=== PATIENT | female | born 1980 | race Caucasian/White ===

== ENCOUNTER → 2017-04-06 | Outpatient (CLI) | payer OTHER ==
--- NOTE | 2017-04-06 10:21 | USB ---
Reason for exam: follow-up at short interval from prior study. History: Family history of breast cancer in maternal aunt at age 32. Physical Findings: Nurse Summary: 1cm movable, round, cystic cluster tender with palpation. Patient complains of bilateral breast pain x 1 month (nurse mm) US Breast BILAT Right breast ultrasound includes all four quadrants, the retroareolar region and axilla. Finding demonstrates a 7 x 4 x 7mm oval, mixed lesion at 7 o'clock, a 7 x 4 x 8mm lobular, mixed lesion at 8 o'clock, a 10 x 4 x 6mm lobular, cystic lesion at 9 o'clock, a 6 x 6 x 7mm lobular, mixed lesion at 10 o'clock and a 16 x 6 x 9mm lobular, mixed lesion at 11 o'clock. Left breast ultrasound includes all four quadrants, the retroareolar region and axilla. Finding demonstrates a 11 x 3 x 6mm oval, lobular, mixed lesion at 12 o'clock, a 6 x 3 x 4mm lobular, mixed lesion at 1 o'clock, a 7 x 3 x 7mm oval, mixed lesion at 3 o'clock, a 9 x 3 x 7mm oval, mixed lesion at 3 o'clock, a 7 x 5 x 6mm mixed lesion at 9 o'clock and a 11 x 4 x 7mm mixed lesion at 11 o'clock. These results were verbally communicated with the patient and result sheet given to the patient on 04/06/17. ASSESSMENT: Incomplete: need additional imaging evaluation, BI-RAD 0 RECOMMENDATION: Breast MRI of both breasts.
== END | disposition home or self-care (01) ==
LOC: RADUSWWP 08:55
PROVIDERS: ATTEND Family Medicine
DX: R92.8 Other abnormal and inconclusive findings on diagnostic imaging of breast (principal)

== ENCOUNTER → 2017-05-11 | Outpatient (CLI) | payer OTHER ==
--- NOTE | 2017-05-12 12:47 | BMR ---
EXAMINATION TYPE: MR breast BILAT wo/w con DATE OF EXAM: 05/11/2017 COMPARISON: Ultrasound breast 04/06/2017 HISTORY: Abnormal US showing lesions in both breasts TECHNIQUE: A series of fat and water weighted images in the long and short axis views of both breasts are obtained in conjunction with dynamic contrast MRI with subtraction technique. The patient was i njected with 13 mL intravenous MultiHance gadolinium contrast. Three-dimensional and additional pos tprocessing imaging is created on independent workstation and reviewed during official interpretation of this study. FINDINGS: The bilateral breasts show multiple hyperintense foci on T2 weighted sequences correspondin g to breast cysts. There is normal fibroglandular tissue present bilaterally. No evident axillary iván nopathy bilaterally. Right breast: No suspicious abnormal enhancement is evident. No skin thickening, nipple retraction. The left breast shows a focus at the 3:00 position corresponding likely to be area of palpable abnorm ality and mixed echogenicity with measurement of approximately 7 mm as noted on ultrasound. Type III curve is associated and dynamic postcontrast images. Lesion is approximately 5 cm from the nipple. IMPRESSION: Left breast suspicious abnormality, BI-RADS 4, recommend ultrasound-guided breast core biopsy 3:00 po sition of the mixed solid cystic lesion. Right breast: Benign, BI-RADS 2
== END | disposition home or self-care (01) ==
LOC: RADMRIMAIN 16:52
PROVIDERS: ATTEND Physician Assistant Medical
DX: R92.8 Other abnormal and inconclusive findings on diagnostic imaging of breast (principal); N64.9 Disorder of breast, unspecified; Z80.3 Family history of malignant neoplasm of breast
CPT/HCPCS: 77059; 0159T; A9577

== ENCOUNTER → 2017-05-25 | Day surgery (SDC) | payer OTHER ==
[2017-05-25 08:56] VITALS: RESP 16; BMI 22.5
--- NOTE | 2017-05-25 10:24 | USB ---
EXAMINATION TYPE: US biopsy breast VAD LT DATE OF EXAM: 05/25/2017 CLINICAL HISTORY: R92.8 ABN ultrasound and MRI. TECHNIQUE: Ultrasound guided fine-needle aspiration and/or core biopsy of left breast. COMPARISON: Bilateral breast MRI May 11, 2017. Bilateral breast ultrasound 12/07/2016 FINDINGS: The procedure of ultrasound guided fine-needle aspiration and/or core biopsy was explained to the patient. Benefits, alternatives, and risks were discussed. An informed consent was then obta ined. The patient was placed in supine positioning for imaging and for the procedure. Preprocedure imaging redemonstrates elongated oval hypoechoic anechoic slightly ill-defined lesion 3:00 position in the l eft breast zone B cc there is believed to correspond to MRI abnormality roughly 5 cm from the nipple measuring roughly 9 mm on long axis. The overlying skin was prepped and draped in usual sterile fashi on. Lidocaine was used as anesthetic into the skin. Lidocaine with epinephrine was used as anesthetic into the deeper tissue up to area of concern in the left breast. A marta was made with surgical scal pel. Attempts with ultrasound-guided fine-needle aspiration utilizing 18-gauge spinal needle were un successful in obtaining fluid. At this point in attenuation with biopsy was performed. Under ultrasound guidance, a 12-gauge vacuum assisted biopsy gun device was used to obtain 3 [address]es. Following this, a biopsy clip was not left in lesion. Patient refused to have biopsy clip lef t at area of concern despite explanation by myself of why having clip is preferred. Lesion was not re adily visualized after biopsy. The patient tolerated the procedure well without any immediate complication. The patient was kept in the radiology department for short stay after the procedure and then discharged home in stable condi tion. IMPRESSION: Successful, uncomplicated ultrasound guided core biopsy of area of concern in the left br east, full pathology results to follow. Low index of suspicion noted at time of procedure.
[2017-05-25 10:41] VITALS: BP 110/74; PULSE 74; TEMP 97.9
== END ==
LOC: RADUSWWP 08:32
PROVIDERS: ATTEND Surgery
DX: N60.32 Fibrosclerosis of left breast (principal); N60.82 Other benign mammary dysplasias of left breast; R92.8 Other abnormal and inconclusive findings on diagnostic imaging of breast; N60.22 Fibroadenosis of left breast; N64.89 Other specified disorders of breast; Z91.09 Other allergy status, other than to drugs and biological substances
CPT/HCPCS: 88305; 19083; J2001

== ENCOUNTER → 2021-05-05 | Outpatient (CLI) | payer OTHER ==
--- NOTE | 2021-05-05 14:34 | USB ---
EXAMINATION TYPE: US breast complete RT DATE OF EXAM: 05/05/2021 COMPARISON: 04/06/2017 CLINICAL HISTORY: N63 Unspecified lump in breast. Findings: The right breast was scanned with ultrasound in all 4 quadrants and the retroareolar region and axill a. Multiple simple and septated cysts are seen. In the right breast at 8:00 in the area of patient's clinical abnormality, there is a 1.4 x 1.2 cm hy poechoic ovoid lesion which most likely represents a complicated cyst, however, abscess is also a pos sibility. IMPRESSION: In the right breast at 8:00 in the area of patient's clinical abnormality, there is a 1.4 x 1.2 cm hy poechoic ovoid lesion which most likely represents a complicated cyst, however, abscess is also a pos sibility. Patient is due for her bilateral mammogram which should be performed as a diagnostic study. Follow-up right breast ultrasound is recommended in 6-8 weeks. BI-RADS 0, incomplete.
== END | disposition home or self-care (01) ==
LOC: RADUSWWP 12:59
PROVIDERS: ATTEND Family Medicine
DX: N60.01 Solitary cyst of right breast (principal)

== ENCOUNTER → 2021-05-07 | Outpatient (CLI) | payer OTHER ==
[2021-05-07 13:08] VITALS: BP 109/66; PULSE 42; RESP 12
--- NOTE | 2021-05-07 13:30 | P.GSHP ---
History of Present Illness H&P Date: 05/07/21 Chief Complaint: right breast lump Jose Guadalupe is a 41 year old white female seen in consultation Dr. Mendez regarding a lump in her right breast. She noted this last week. It had increased to golf ball size and was given a prescription for antibiotics. She was given cephalaxin, she is taking this TID. The growth rate decreased but the lump remained present. It has not drained. It was painful when it started, this has decreased. She did not have any fevers. She did not have any trauma, but she did have some erythema. She did have some cyst two years ago in her left breast in the past. She had aspiration in 2017 and this was benign. 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; takes metholated folate Social History: nicotine: 1PPD since 17 alcohol: occasional Marijuana Gummies at night to sleep - Constitutional Constitutional: Reports sweats - EENT Eyes: bilateral as per HPI Ears: deny: decreased hearing, tinnitus Ears, nose, mouth and throat: Reports headache - Breasts Breasts: bilateral: as per HPI - Cardiovascular Cardiovascular: Reports as per HPI - Respiratory Comment: decreased lung function Respiratory: Reports as per HPI - Gastrointestinal Gastrointestinal: Reports constipation, Denies abdominal pain, Denies diarrhea, Denies nausea, Denies vomiting - Genitourinary (Female) Genitourinary: Denies dysuria, Denies hematuria - Menstruation Menstruation: Reports as per HPI - Musculoskeletal Musculoskeletal: Denies myalgias - Integumentary Integumentary: Denies pruritus, Denies rash - Neurological Neurological: Reports weakness, Denies numbness - Psychiatric Psychiatric: Reports anxiety, Reports depression - Endocrine Endocrine: Reports fatigue - Hematologic/Lymphatic Comment: none - Allergic/Immunologic Allergic/Immunologic: Reports seasonal allergies Past Medical History Additional Past Medical History / Comment(s): PVC's, horseshoe kidneys, pre- glaucoma dx. May 2017, History of Any Multi-Drug Resistant Organisms: None Reported Past Surgical History: Ablation Additional Past Surgical History / Comment(s): uterine ablation, mole removed from breast Past Anesthesia/Blood Transfusion Reactions: Postoperative Nausea & Vomiting (PONV) Past Psychological History: Anxiety Past Alcohol Use History: Occasional Past Drug Use History: Marijuana Additional Drug Use History / Comment(s): occasional Medications and Allergies Home Medications Medication Instructions Recorded Confirmed Type clonazePAM [KlonoPIN] 0.5 mg PO BID 08/10/16 05/25/17 History ALPRAZolam [Xanax] 0.5 mg PO DAILY PRN 05/19/17 05/25/17 History Magnesium Gluconate [Magonate] 1 each PO DAILY 05/19/17 05/25/17 History Allergies Allergy/AdvReac Type Severity Reaction Status Date / Time adhesive AdvReac Rash/Hives Verified 05/25/17 08:56 Surgical - Exam BMI 21.9 - General moderate distress - Eyes normal ocular movement - ENT no hearing loss - Neck no masses, trachea midline - Respiratory normal respiratory effort, clear to auscultation - Cardiovascular Heart Sounds: normal: S1, S2 - Abdomen Abdomen: soft, non tender, no guarding, no rigid, no rebound - Integumentary normal turgor - Neurologic no disoriented, no combative - Musculoskeletal normal gait, normal posture - Psychiatric oriented to time, oriented to person, oriented to place, speech is normal, memory intact Breast exam: BRA: 34B inspection: Bilateral grade 2 ptosis Palpation: Right breast: Multiple positional exam dense breasts, approximately 3 x 3 cm fullness in the lateral periareolar aspect Right axilla: No adenopathy of concern Left breast: Multi-positional exam dense breast, fibrocystic changes Left axilla: No adenopathy of concern Results Patient's ultrasound reviewed with Dr. Trinidad/lesion compatible with abscess versus complicated cyst Assessment and Plan Assessment: Impression: 1. New onset right breast mass 2. Abnormal right breast ultrasound 3. Strong family history of cancer 4. Family history of BRCA1 positive in a cousin on the maternal side/maternal aunt of breast cancer Plan: 1. Bilateral mammogram when cyst/abscess resolved 2. Ultrasound-guided biopsy/aspiration right breast Mass. 3. Consider genetic testing CC: Dr. Mendez
== END ==
LOC: WWCWWP 12:40
PROVIDERS: ATTEND Surgery
DX: N63.10 Unspecified lump in the right breast, unspecified quadrant (principal); R92.8 Other abnormal and inconclusive findings on diagnostic imaging of breast; Z80.3 Family history of malignant neoplasm of breast; F17.210 Nicotine dependence, cigarettes, uncomplicated; F41.9 Anxiety disorder, unspecified; Z91.048 Other nonmedicinal substance allergy status

== ENCOUNTER → 2021-05-08 | Day surgery (SDC) | payer OTHER ==
[2021-05-08 10:11] VITALS: RESP 16
[2021-05-08 11:17] VITALS: BP 108/69; PULSE 62; TEMP 98.3
--- NOTE | 2021-05-08 12:42 | USB ---
EXAMINATION TYPE: US breast aspiration single RT DATE OF EXAM: 05/08/2021 COMPARISON: 05/05/2021 CLINICAL HISTORY: R92.8 Abnormal Imaging. Findings: The right breast was scanned with ultrasound and 8:00. Previously seen cystic lesion was identified. The risks, benefits and alternatives were explained to the patient and informed consent was obtained. The patient was prepped and draped in normal sterile fashion. Local analgesia was obtained the admin istration of lidocaine into the skin and deeper tissues. A 14-gauge needle was inserted into the cyst under direct ultrasound guidance and 1 mL of turbid yellow fluid was aspirated and sent to the lab f or culture and sensitivity. The entire cyst was drained without residual abnormality seen. The patien t tolerated the procedure well without immediate complication. IMPRESSION: Successful aspiration of right breast cyst at 8:00. Follow-up pathology results. Clinical follow-up i s recommended.
== END ==
LOC: RADUSWWP 09:38
PROVIDERS: ATTEND Surgery
DX: Z91.09 Other allergy status, other than to drugs and biological substances (principal)
CPT/HCPCS: 87070; 87205; 76942; 19000; J2001

== ENCOUNTER → 2021-06-16 | Outpatient (CLI) | payer OTHER ==
--- NOTE | 2021-06-17 10:35 | MM ---
Reason for exam: additional evaluation requested from prior study. Last mammogram was performed 4 years and 10 months ago. History: Family history of breast cancer in maternal aunt at age 32. Benign US breast aspiration single RT of the right breast, May 08, 2021. Benign US biopsy breast VAD LT of the left breast, May 25, 2017. Took hormonal contraceptives for 4 years beginning at age 17. Physical Findings: Nurse did not find any significant physical abnormalities on exam. MG Diagnostic Mammo w CAD SUSANNA Bilateral CC and MLO view(s) were taken. Prior study comparison: August 25, 2016, bilateral MG 3d screening mammo w/cad. The breast tissue is heterogeneously dense. This may lower the sensitivity of mammography. Stable scattered calcifications. Nodularity upper outer quadrant right breast. These results were verbally communicated with the patient and result sheet given to the patient on 06/16/21. ASSESSMENT: Incomplete: need additional imaging evaluation, BI-RAD 0 RECOMMENDATION: Ultrasound of the right breast.
--- NOTE | 2021-06-17 10:36 | USB ---
Reason for exam: additional evaluation requested from abnormal screening. History: Family history of breast cancer in maternal aunt at age 32. Benign US breast aspiration single RT of the right breast, May 08, 2021. Benign US biopsy breast VAD LT of the left breast, May 25, 2017. Took hormonal contraceptives for 4 years beginning at age 17. US Breast Limited RT Right limited breast ultrasound including focal area of concern, retroareolar and axilla demonstrates a 1.0 x 0.7 x 0.9cm lesion at 9 o'clock. Multiple cystic areas. These results were verbally communicated with the patient and result sheet given to the patient on 06/16/21. ASSESSMENT: Benign, BI-RAD 2 RECOMMENDATION: Routine screening mammogram of both breasts in 1 year. Manage patient on a clinical basis.
== END | disposition home or self-care (01) ==
LOC: RADMAMWWP 13:40
PROVIDERS: ATTEND Surgery
DX: R92.1 Mammographic calcification found on diagnostic imaging of breast (principal); N60.01 Solitary cyst of right breast; Z80.3 Family history of malignant neoplasm of breast; Z79.3 Long term (current) use of hormonal contraceptives
CPT/HCPCS: 77066

== ENCOUNTER → 2021-06-20 | Outpatient (CLI) | payer OTHER ==
[2021-06-20 15:37] VITALS: BP 122/80; PULSE 41; RESP 12; TEMP 98.4
--- NOTE | 2021-06-20 16:06 | P.PN ---
Subjective Progress Note Date: 06/20/21 Principal diagnosis: fibrocystic breast disease Jose Guadalupe is a 41 year old white female seen in consultation Dr. Mendez regarding a lump in her right breast. She noted this last week. It had increased to golf ball size and was given a prescription for antibiotics. She was given cephalaxin, she is taking this TID. The growth rate decreased but the lump remained present. It has not drained. It was painful when it started, this has decreased. She did not have any fevers. She did not have any trauma, but she did have some erythema. She did have some cyst two years ago in her left breast in the past. She had aspiration in 2017 and this was benign. 06-20-21 The cystic lesion in the right breast was drained on [id number]. This revealed many PMNs but no organisms. The patient states that it does not seem like it has recurred. [place] [address] this was felt to be BIRADS serial Limited ultrasound was recommended of the right breast. This was performed on the same day which revealed a 1 x 0.7 cm lesion at 9:00 multiple cystic areas. It was felt that this was benign BIRADS 2 and routine screen of both breasts in 1 year was recommended. The patient at this time does not have any complaints of any lumps masses or nodules in either breast. 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; takes metholated folate Social History: nicotine: 1PPD since 17 alcohol: occasional Marijuana Gummies at night to sleep - Constitutional Constitutional: Reports sweats - EENT Eyes: bilateral as per HPI Ears: deny: decreased hearing, tinnitus Ears, nose, mouth and throat: Reports headache - Breasts Breasts: bilateral: as per HPI - Cardiovascular Cardiovascular: Reports as per HPI - Respiratory Comment: decreased lung function Respiratory: Reports as per HPI - Gastrointestinal Gastrointestinal: Reports constipation, Denies abdominal pain, Denies diarrhea, Denies nausea, Denies vomiting - Genitourinary (Female) Genitourinary: Denies dysuria, Denies hematuria - Menstruation Menstruation: Reports as per HPI - Musculoskeletal Musculoskeletal: Denies myalgias - Integumentary Integumentary: Denies pruritus, Denies rash - Neurological Neurological: Reports weakness, Denies numbness - Psychiatric Psychiatric: Reports anxiety, Reports depression - Endocrine Endocrine: Reports fatigue - Hematologic/Lymphatic Comment: none - Allergic/Immunologic Allergic/Immunologic: Reports seasonal allergies Objective - Vital Signs Vital signs: Vital Signs Temp 98.4 F 06/20/21 15:23 Pulse 41 L 06/20/21 15:23 Resp 12 06/20/21 15:23 BP 122/80 06/20/21 15:23 Pulse Ox 99 06/20/21 15:23 Intake & Output 06/19/21 06/20/21 06/20/21 18:59 06:59 18:59 Weight 64.41 kg - Constitutional General appearance: Present: cooperative - EENT Eyes: Present: EOMI ENT: Present: hearing grossly normal - Respiratory Respiratory: bilateral: CTA - Cardiovascular Rhythm: regular Heart sounds: normal: S1, S2 - Integumentary Integumentary: Present: normal turgor - Musculoskeletal Musculoskeletal: Present: gait normal - Psychiatric Psychiatric: Present: A&O x's 3, appropriate affect, intact judgment & insight - Additional findings Additional findings: Breast Exam: BRA: 34B inspection: bilateral grade 2 ptosis palpation: right breast: no residual mass, no dominate masses or nodules of concern right axilla: no adenopathy of concern left bresat: no masses or nodules of concern left axilla: no adenopathy of concern Assessment and Plan Assessment: Impression: fibrocystic breast disease no evidence of recurrent abscess Plan: bilateral mammogram in one year and follow up CC: Dr. Mendez
== END ==
LOC: WWCWWP 14:55
PROVIDERS: ATTEND Surgery
DX: N63.10 Unspecified lump in the right breast, unspecified quadrant (principal); N60.19 Diffuse cystic mastopathy of unspecified breast; F41.9 Anxiety disorder, unspecified; F17.210 Nicotine dependence, cigarettes, uncomplicated; Z91.048 Other nonmedicinal substance allergy status

== ENCOUNTER → 2022-02-25 | Outpatient (CLI) | payer OTHER ==
--- NOTE | 2022-02-25 14:38 | XR ---
EXAMINATION TYPE: XR knee complete RT DATE OF EXAM: 02/25/2022 COMPARISON: NONE HISTORY: Pain TECHNIQUE: Three views are submitted. FINDINGS: Joint spaces are preserved. Osseous structures are intact. No acute fracture seen. Diffuse osteope abiola IMPRESSION: 1. No acute fracture or dislocation.
== END | disposition home or self-care (01) ==
LOC: RADXRYALE 13:44
PROVIDERS: ATTEND Physician Assistant Medical
DX: M25.561 Pain in right knee (principal)

== ENCOUNTER → 2022-07-22 | Outpatient (CLI) | payer OTHER ==
--- NOTE | 2022-07-23 10:05 | MM ---
Reason for Exam: Screening (asymptomatic). Last mammogram was performed 1 year(s) and 2 month(s) ago. Patient History: Menarche at age 14. First Full-Term at age 22. Hormonal Contraceptives for 4 years from age 17 until age 21. 05/08/2021, Benign Cyst Aspiration on the right side. 05/25/2017, Benign Core Biopsy on the left side. Maternal aunt had breast cancer, age 32. Risk Values: Audra 5 year model risk: 0.9%. NCI Lifetime model risk: 10.9%. Prior Study Comparison: 08/25/2016 Bilateral Screening Mammogram, [facility]. 06/16/2021 Bilateral Diagnostic Mammogram, [facility]. Tissue Density: The breast tissue is heterogeneously dense. This may lower the sensitivity of mammography. Findings: Analyzed By CAD. There is no suspicious group of microcalcifications in either breast. Increased size of 1.4 cm right upper outer quadrant posterior depth mass with circumscribed margin and high density. Overall Assessment: Incomplete: need additional imaging evaluation, BI-RAD 0 Management: Diagnostic Breast Ultrasound of the right breast. A clinical breast exam by your physician is recommended on an annual basis and results should be correlated with mammographic findings. [facility] will attempt to contact patient to return for supplemental views and ultrasound if indicated. Electronically signed and approved by: Pedro Gallagher D.O.
== END | disposition home or self-care (01) ==
LOC: RADMAMWWP 14:57
PROVIDERS: ATTEND Surgery
DX: Z12.31 Encounter for screening mammogram for malignant neoplasm of breast (principal); Z80.3 Family history of malignant neoplasm of breast
CPT/HCPCS: 77067

== ENCOUNTER → 2022-07-31 | Outpatient (CLI) | payer OTHER ==
--- NOTE | 2022-07-31 11:31 | USB ---
Patient History: Menarche at age 14. First Full-Term at age 22. Hormonal Contraceptives for 4 years from age 17 until age 21. 05/08/2021, Benign Cyst Aspiration on the right side. 05/25/2017, Benign Core Biopsy on the left side. Maternal aunt had breast cancer, age 32. Risk Values: Audra 5 year model risk: 0.9%. NCI Lifetime model risk: 10.9%. Technique: Method: Targeted. Prior Study Comparison: 08/25/2016 Bilateral Screening Mammogram, [facility]. 06/16/2021 Bilateral Diagnostic Mammogram, [facility]. 07/22/2022 Bilateral MG screening mammo w CAD, [facility]. Findings: The upper outer quadrant of the right breast and the retroareolar of the right breast were scanned. There is a large cyst measuring 1.1 x 0.8 x 1.4 cm 10:00 position 7 cm from nipple. This appears to correspond to the mammographic abnormality. Additional benign-appearing smaller cysts are also present. No suspicious solid lesions. Overall Assessment: Benign, BI-RAD 2 Management: Screening Mammogram of both breasts in 1 year. A clinical breast exam by your physician is recommended on an annual basis and results should be correlated with mammographic findings. This exam should not preclude additional follow-up of suspicious palpable abnormalities. ??Results were given to the patient verbally at the time of exam. Electronically signed and approved by: Willem Salinas D.O. Radiologis
== END | disposition home or self-care (01) ==
LOC: RADUSWWP 10:12
PROVIDERS: ATTEND Surgery
DX: R92.8 Other abnormal and inconclusive findings on diagnostic imaging of breast (principal); Z80.3 Family history of malignant neoplasm of breast; Z98.890 Other specified postprocedural states

== ENCOUNTER → 2022-07-31 | Outpatient (CLI) | payer OTHER ==
[2022-07-31 11:51] VITALS: BP 128/84; PULSE 89; RESP 16; TEMP 98.5
--- NOTE | 2022-07-31 12:23 | P.PN ---
Subjective Progress Note Date: 07/31/22 Principal diagnosis: cyst right breast Jose Guadalupe is a 42 year old white female seen in the past for Dr. Mendez regarding a right breast abscess which was drained percutaneously. It has not recurred. At this time has very nodular breasts with no discrete Lungs masses or nodules for which she is concerned. She had a bilateral mammogram performed on . This was felt to be incomplete and ultrasound of the right breast was recommended. This was performed in [id number]. This revealed a large cyst measuring 1.1 x 1.4 cm in the 10 o'clock position. This was felt to correspond to a mammographic abnormality. No other lesions of concern were noted. This was a benign BIRADS 2 and screening mammogram of both breast in 1 year was recommended. 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 anxiety 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; takes metholated folate suspected TIA patent foramen ovale/ closure on Jun Social History: nicotine: 1PPD since alcohol: occasional Marijuana Gummies at night to sleep in the past but has stopped this - Constitutional Constitutional: Reports sweats - EENT Eyes: bilateral as per HPI Ears: deny: decreased hearing, tinnitus Ears, nose, mouth and throat: Reports headache - Breasts Breasts: bilateral: as per HPI - Cardiovascular Cardiovascular: Reports as per HPI - Respiratory Comment: decreased lung function Respiratory: Reports as per HPI - Gastrointestinal Gastrointestinal: Reports constipation, Denies abdominal pain, Denies diarrhea, Denies nausea, Denies vomiting - Genitourinary (Female) Genitourinary: Denies dysuria, Denies hematuria - Menstruation Menstruation: Reports as per HPI - Musculoskeletal Musculoskeletal: Denies myalgias - Integumentary Integumentary: Denies pruritus, Denies rash - Neurological Neurological: Reports weakness, Denies numbness - Psychiatric Psychiatric: Reports anxiety, Reports depression - Endocrine Endocrine: Reports fatigue - Hematologic/Lymphatic Comment: none - Allergic/Immunologic Allergic/Immunologic: Reports seasonal allergies Objective - Vital Signs Vital signs: Vital Signs Temp 98.5 F 07/31/22 11:47 Pulse 89 07/31/22 11:47 Resp 16 07/31/22 11:47 BP 128/84 07/31/22 11:47 Pulse Ox 98 07/31/22 11:47 FiO2 Intake & Output 07/30/22 07/31/22 07/31/22 18:59 06:59 18:59 Weight 69.853 kg - Constitutional General appearance: Present: cooperative - EENT Eyes: Present: EOMI ENT: Present: hearing grossly normal - Neck Neck: Present: normal ROM - Respiratory Respiratory: bilateral: CTA - Cardiovascular Rhythm: regular Heart sounds: normal: S1, S2 - Integumentary Integumentary: Present: normal turgor - Musculoskeletal Musculoskeletal: Present: gait normal - Psychiatric Psychiatric: Present: A&O x's 3, appropriate affect, intact judgment & insight - Additional findings Additional findings: Breast Exam: BRA: 34C inspection: bilateral grade 2 ptosis Palpation: Right breast: Multi-positional exam fibrocystic changes no discrete dominant masses or nodules of concern Right axilla: No adenopathy of concern Left breast: Positional exam fibrocystic changes no discrete dominant masses or nodules of concern Left axilla: No adenopathy of concern Assessment and Plan Assessment: Impression: Bilateral fibrocystic breast changes nothing which would warrant interventional biopsy or drainage at this time Plan: Bilateral mammogram in 1 year with physician exam at that time Patient is encouraged to decrease caffeine intake as well as to stop smoking CC: Dr. Mendez
== END ==
LOC: WWCWWP 10:11
PROVIDERS: ATTEND Surgery
DX: N60.11 Diffuse cystic mastopathy of right breast (principal); N60.12 Diffuse cystic mastopathy of left breast; Z91.048 Other nonmedicinal substance allergy status; F17.200 Nicotine dependence, unspecified, uncomplicated